=== PATIENT | male | born 1960 | race Caucasian/White ===

== ENCOUNTER → 2017-09-23 | Outpatient (CLI) | payer BC ==
--- NOTE | 2017-09-24 08:26 | XR ---
EXAMINATION TYPE: XR knee complete RT DATE OF EXAM: 09/23/2017 CLINICAL HISTORY: Knee pain inferior to the patella after fall. TECHNIQUE: Three views of the right knee are obtained. COMPARISON: None. FINDINGS: There is no acute fracture/dislocation evident in right knee. There is mild medial compart ment joint space narrowing and medial and lateral compartment small marginal osteophytes as well as m ild narrowing of the patellofemoral compartment. No suprapatellar joint effusion. No focal soft tissu e swelling. Patellar tendon is unremarkable radiographically although not adequately evaluated on thi s modality. The overlying soft tissue appears unremarkable. IMPRESSION: 1. There is no acute fracture or dislocation in the right knee. 2. Mild tricompartmental arthrosis.
== END | disposition home or self-care (01) ==
LOC: RADXRYALE 16:42
PROVIDERS: ATTEND Physician Assistant Medical
DX: M17.11 Unilateral primary osteoarthritis, right knee (principal)

== ENCOUNTER 2023-03-31 12:06 | Day surgery (SDC) | payer BC ==
[2023-03-31] MEDS ORDERED: LIDOCAINE 1% (10MG/ML) FOR IV START INTRADERMA PRN (12:19)
[2023-03-31] MEDS ORDERED: LACTATED RINGERS 1,000 ML IV SCH (12:19)
[2023-03-31] MEDS ORDERED: droPERidol 5 MG/2 ML VIAL IVP ONE (12:19)
[2023-03-31] MEDS ORDERED: ONDANSETRON 4 MG/2 ML VIAL IVP ONE (12:19)
[2023-03-31 12:57] LABS: Glucose,Whole Blood 123 mg/dL (70-110)
[2023-03-31] MEDS ORDERED: DEXAMETHASONE SOD PHOSPHATE 4 MG/ML 1 ML VIAL IVP ONE (12:57)
[2023-03-31] MEDS ORDERED: MIDAZOLAM 2 MG/2 ML VIAL IVP ONE (13:32)
[2023-03-31] MEDS ORDERED: SUCCINYLCHOLINE CHLORIDE 200 MG/10 ML VIAL IV ONE (14:25)
[2023-03-31] MEDS ORDERED: fentaNYL (PF) 50 MCG/ML 2 ML AMP ONE (14:25)
[2023-03-31] MEDS ORDERED: DEXAMETHASONE SOD PHOSPHATE 4 MG/ML 1 ML VIAL ONE (14:25)
[2023-03-31] MEDS ORDERED: MIDAZOLAM 2 MG/2 ML VIAL ONE (14:25)
[2023-03-31] MEDS ORDERED: ROPIVACAINE 5 MG/ML 30 ML VIAL ONE (14:25)
[2023-03-31] MEDS ORDERED: PROPOFOL 10 MG/ML 20 ML VIAL IV ONE (14:25)
[2023-03-31] MEDS ORDERED: LIDOCAINE 2% INJ 20 MG/ML (2 ML VIAL) ONE (14:25)
[2023-03-31] MEDS ORDERED: HYDROmorphone (PF) 1 MG/ML ONE (14:25)
[2023-03-31] MEDS ORDERED: LACTATED RINGERS 1,000 ML IV ONE (14:56)
--- NOTE | 2023-03-31 15:59 | XR ---
Intraoperative/procedural fluoroscopic services were provided for ORIF left ankle with distal fibular fixation plate crossing the oblique distal fibular fracture and skin andrea along the medial ankle. Total fluoroscopy time is 29.5 seconds with a total of 1 submitted image to PACS. Total DAP 0.3208 G ycm2. Please see the operative note for further details.
[2023-03-31] MEDS: HYDROmorphone 0.5 MG/0.5 ML SYRINGE IVP PRN ×2 (16:09→16:26)
[2023-03-31 16:14] LABS: Glucose,Whole Blood 157 mg/dL (70-110)
[2023-03-31 16:18] VITALS: TEMP 96.8
--- NOTE | 2023-03-31 16:18 | P.OP ---
Date of Procedure: 03/31/23 Preoperative Diagnosis: 1. Displaced lateral malleolar fracture left ankle 2. Ruptured syndesmosis left ankle 3. Ruptured deltoid ligament left ankle Postoperative Diagnosis: 1. Same 2. Same 3. Same Procedure(s) Performed: 1. Open reduction with internal fixation left lateral malleolar fracture 2. Repair syndesmosis left ankle 3. Deltoid ligament left ankle Implants: Arthrex precontoured lateral malleolar plate with locking and nonlocking screws Arthrex fiber Humberto anchors 2 Arthrex tight rope Anesthesia: BRIANNE Surgeon: Kayden Pickard Estimated Blood Loss (ml): 20 Pathology: none sent Condition: stable Disposition: PACU Description of Procedure: Prior to the patient being brought to the operating room, anesthesia administered a nerve block and left lower extremity. The patient was brought into the operating room and placed on table in supine position. Timeout was taken to confirm correct patient identifiers, correct laterally surgery, and correct procedure. The patient was induced and placed under general anesthesia. A well-padded tourniquet was placed on left thigh and a bump underneath the left hip to internally rotate the left leg. The left leg was prepped and draped usual manner. The leg was exsanguinated and the tourniquet inflated to 250 mmHg. Attention was directed over the medial malleolus were curvilinear incision was made over the anterior surface. It was deepened down to the saphenous tissue careful to identify, avoid, and retract any neurovascular structures and cauterize any bleeding vessels. Blunt dissection was continued down to the deltoid ligament. The distal and anterior portions of the deltoid were completely ruptured off the medial malleolus and were in the medial gutter. A Sunny was used to remove the cortical bone from the anterior and distal surfaces of the medial malleolus. Drill holes for the fiber Payam anchors were made. The anchors were inserted and impacted done to proper depth. The suture on the anchors was then used to capture the deltoid ligament and evacuated from the m edial gutter of the ankle joint. Then with the ankle held in inversion the sutures were tied to repair the ligament back to the medial malleolus. The wound is irrigated with antibiotic saline. Subcu closure was done with 4-0 Monocryl. And skin closure done with andrea. Attention was directed over the lateral malleolus where a linear incision was made over the midline. It was deepened down to the subcutaneous tissue careful to identify, avoid, and retract any neurovascular structures and cauterize any bleeding vessels blunt dissection was then carried down to to the level of the fracture. The soft tissues reflected anteriorly and posteriorly to expose the fracture. Any interposing piece of tissue or hematoma were debrided. The clamp was placed on the distal aspect lateral malleolus to bring them back out to length and then a second clamp utilized to reduce the fracture. Fluoroscopic imaging showed anatomic reduction of the fracture. There was too much fragmentation of the first lateral malleolus to utilize a interfragmentary screw, therefore the plate was placed over the lateral malleolus and positioned correctly under fluoroscopy. Temporary fixation was then it performed. A locking and nonlocking screws were placed first through the proximal portion of the plate. And then 2 distal locking screws were placed through the plate while holding the fibula out to length. Once the 2 points of fixation were in place fluoroscopy was used to check the overall alignment. There was anatomic reduction of the fracture with maintained length. The third screws placed proximally and then 2 more distal screws were placed. Then attention was directed to the syndesmosis repair. With the ankle dorsiflexed large periarticular clamp was then placed on the lateral malleolus hole was and the medial malleolus. Proper tensioning was used to reduce the syndesmosis while holding the ankle maximally dorsiflexed. Then a drill hole was placed through the plate proximally 1 cm proximal to the ankle joint. It was targeted straight lateral to medial with anterior angulation and it exited out the medial malleolus. An Arthrex tight rope was then inserted until the button was clear to the medial cortex. The button was then released and manipulated so it seated flat against the tibia. The quarter section ironer was removed, and with the maximum dorsiflexion maintained, the lateral button was then pulled tight to the plate. Live fluoroscopic imaging was performed to stress test the syndesmosis. There was no gapping or abnormal movement noted. The sutures were then cut and the wound irrigated thoroughly with antibiotic saline. Deep closure was done with 2-0 Vicryl. Subcu closure was done with 3-0 Monocryl. Skin closure done with andrea. An Arthrex jumpstart dressing was placed over both incisions. A bulky dry dressings applied to left ankle. The tourniquet was released and capillary refill return to all digits on the left foot. The patient was then placed in a well-padded, well molded plaster posterior mold/sugar tong splint. Ankle was held in neutral dorsiflexion and inversion until it was dried then anesthesia was reversed and the patient was taken recovery with vital signs stable.
[2023-03-31 16:30] VITALS: RESP 16
[2023-03-31] MEDS ORDERED: HYDROcodone/APAP 7.5-325MG 1 EACH TAB ONE (16:39)
[2023-03-31] MEDS ORDERED: HYDROcodone/APAP 7.5-325MG 1 EACH TAB PO ONE (16:42)
[2023-03-31 17:04] VITALS: BP 157/90; PULSE 89
--- NOTE | 2023-03-31 20:43 | P.ANPRN ---
Procedure Note - Anesthesia - Nerve Block Performed Left Popliteal Single Time Out Performed: Yes Date of Procedure: 03/31/23 Procedure Start Time: 13:31 Procedure Stop Time: 13:35 Location of Patient: PreOp Indication: Acute Post-Operative Pain, Requested by Surgeon Sedation Type: Sedate with meaningful contact maintained Preparation: Sterile Prep Position: Right Lateral Needle Types: Pajunk Needle Gauge: 21 Ultrasound used to visualize needle placement: Yes Ultrasound used to observe medication spread: Yes Blood Aspirated: No Pain Paresthesia on Injection Noted: No Resistance on Injection: Normal Image Stored and Saved: Yes Events: Uneventful and Well Tolerated (ropi .5% 20cc plus dexamethasone 4mg)
== END 2023-03-31 17:19 | disposition home or self-care (01) ==
LOC: OR 12:06
PROVIDERS: ATTEND Podiatrist
DX: S82.62XA Displaced fracture of lateral malleolus of left fibula, initial encounter for closed fracture (principal); S93.422A Sprain of deltoid ligament of left ankle, initial encounter; S93.432A Sprain of tibiofibular ligament of left ankle, initial encounter; I10 Essential (primary) hypertension; E11.9 Type 2 diabetes mellitus without complications; Z79.84 Long term (current) use of oral hypoglycemic drugs; Z79.899 Other long term (current) drug therapy; Z98.890 Other specified postprocedural states; X58.XXXA Exposure to other specified factors, initial encounter
CPT/HCPCS: 64445; 73610; 27829; 27792; C1713; J2250; J0330; J1100; J2405; J3010; J1170 ×2; J2795; J2704; J2001

== ENCOUNTER → 2024-08-03 | Outpatient (CLI) | payer BC ==
--- NOTE | 2024-08-03 12:08 | XR ---
EXAMINATION TYPE: XR knee complete LT DATE OF EXAM: 08/03/2024 9:12 AM COMPARISON: None. CLINICAL INDICATION: Male, 64 years old with history of [id number] LT KNEE PAIN, pain TECHNIQUE: 3 view(s) obtained. FINDINGS: No acute fracture or dislocation evident. No joint effusion is evident. Joint spaces appear preserved . Follow up exams can be performed 7-10 days from acute trauma for continued pain. IMPRESSION: 1. No acute osseous abnormality [facility], , 08/03/2024 12:05 PM
== END | disposition home or self-care (01) ==
LOC: RADXRYALE 08:54
PROVIDERS: ATTEND Physician Assistant Medical
DX: M25.562 Pain in left knee (principal)